=== PATIENT | male | born 1965 | race Caucasian/White ===

== ENCOUNTER 2017-01-10 17:56 | Inpatient (IN) | payer BC ==
[~2017-01-10] VITALS: Ht 167.6 cm; Wt 78.5 kg
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
--- NOTE | 2017-01-10 20:10 | RADRPT ---
PROCEDURE: XR Hip. CLINICAL INDICATION: Right hip pain TECHNIQUE: AP and frog lateral views of the right hip and AP pelvis were performed. COMPARISON: 10/22/2012 FINDINGS: There is no definite acute fracture or dislocation. There is a hazy radiopaque opacity measuring ab out 2.0 cm inferior to the femoral neck on the AP view but not visualized on the frog-leg lateral vi ew. There is mild osseous spurring of the right hip. The joint space is intact. There is also mil d osseous spurring of the greater trochanter with a 5 mm opacity adjacent to the greater trochanter. RPTAT: ZZ IMPRESSION: 1. No definite acute fracture. 2. Hazy radiopaque opacity measuring about 2.0 cm inferior to the femoral neck which may be calcifi cation within the soft tissues or artifact overlying the patient as this is not seen on the frog-leg lateral views. Follow-up pelvis radiographs may be helpful for additional evaluation. If this is p ersistent on follow-up radiographs, a follow-up CT may be helpful. 3. Mild degenerative changes of the right hip. 4. Small 5 mm radiopaque opacity adjacent to the greater trochanter which may correspond with a sma ll focus of calcification or hydroxyapatite deposition. .Siria Turcios MD, MD Date Time Electronically viewed and signed by .Siria Turcios MD, on 01/10/2017 20:09 .T/
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
--- NOTE | 2017-01-10 21:27 | RADRPT ---
PROCEDURE: XR Chest. CLINICAL INDICATION: chest pain TECHNIQUE: Single frontal view of the chest was obtained COMPARISON: None FINDINGS: The heart and mediastinum are within normal limits. The lungs are clear. There is no pleural effusion or pneumothorax. RPTAT: AA IMPRESSION: No acute disease. .Arnav Ramirez MD, Date Time Electronically viewed and signed by .Arnav Ramirez MD, on 01/10/2017 21:26 .S/
[2017-01-10 21:28] LABS: ADD SCAN DIFF NO
[2017-01-10 21:31] LABS: BASOPHILS % 0.2 % (0.0-2.0); EOSINOPHILS # 0.1 10^3/ul (0.0-0.5); EOSINOPHILS % 1.3 % (0.0-7.0); HEMATOCRIT 38.3 % (42.0-52.0); HEMOGLOBIN 13.4 g/dl (14.0-18.0); LYMPHOCYTES # 1.7 10^3/ul (0.8-2.9); LYMPHOCYTES % 19.4 % (15.0-51.0); MEAN CORPUSCULAR VOLUME 94.3 fl (82.0-101.0); MEAN PLATELET VOLUME 9.3 fl (7.4-10.4); MONOCYTE # 0.5 10^3/ul (0.3-0.9); MONOCYTES % 5.5 % (0.0-11.0); NEUTROPHIL # 6.3 10^3/ul (1.6-7.5); NEUTROPHILS % 73.4 % (39.0-77.0); PLATELET COUNT 221 10^3/UL (140-415); RED BLOOD COUNT 4.06 10^6/ul (4.70-6.10); WHITE BLOOD COUNT 8.5 10^3/ul (4.8-10.8)
[2017-01-10 21:45] LABS: INR 0.91; PROTIME 12.3 Sec (12.2-14.2)
[2017-01-10 21:46] LABS: PARTIAL THROMBOPLASTIN TIME 30.9 Sec (25.0-35.0)
[2017-01-10] MEDS ORDERED: morphine 4 MG/ML VIAL IV STA (21:48)
[2017-01-10] MEDS ORDERED: ONDANSETRON 4 MG INJ IV STA (21:48)
[2017-01-10 21:49] LABS: ANION GAP 14 (8-16); BLOOD UREA NITROGEN 12 mg/dl (7-20); CALCIUM 9.7 mg/dl (8.4-10.2); CARBON DIOXIDE 26 mmol/L (21-31); CHLORIDE 104 mmol/L (97-110); CREATININE 0.79 mg/dl (0.61-1.24); GLUCOSE 106 mg/dl (70-220); POTASSIUM 4.3 mmol/L (3.5-5.1); SODIUM 140 mmol/L (135-144)
[2017-01-10] MEDS ORDERED: ONDANSETRON 4 MG INJ IV PRN ×2 (22:00→23:30)
[2017-01-10] MEDS ORDERED: ACETAMINOPHEN 325 MG TAB PO PRN (22:00)
[2017-01-10 22:05] LABS: TROPONIN-I < 0.012 ng/ml (0.00-0.12)
[2017-01-10 22:49] VITALS: PULSE 69
[2017-01-10] MEDS ORDERED: GLUC100015 PO (22:57)
[2017-01-10] MEDS ORDERED: DIAZ5TAB4 PO (22:59)
[2017-01-10] MEDS ORDERED: KETOROLAC 30 MG INJ IV ONE (23:24)
[2017-01-10] MEDS ORDERED: HYDROCODONE/APAP (5/325) TAB PO PRN (23:30)
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
[2017-01-10 23:47] VITALS: BP 142/90; RESP 18
[2017-01-10 23:58] VITALS: Ht 167.6 cm; Wt 78.5 kg
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
[2017-01-11] MEDS: morphine 2 MG INJ IV PRN ×3 (07:08→15:02)
[2017-01-11 07:44] LABS: ADD SCAN DIFF NO
[2017-01-11 07:50] LABS: BASOPHILS % 0.5 % (0.0-2.0); EOSINOPHILS # 0.2 10^3/ul (0.0-0.5); EOSINOPHILS % 2.7 % (0.0-7.0); HEMATOCRIT 36.7 % (42.0-52.0); HEMOGLOBIN 12.8 g/dl (14.0-18.0); LYMPHOCYTES % 32.5 % (15.0-51.0); MEAN CORPUSCULAR HEMOGLOBIN 33.5 pg (29.0-33.0); MEAN CORPUSCULAR HGB CONC 34.9 g/dl (32.0-37.0); MEAN CORPUSCULAR VOLUME 96.1 fl (82.0-101.0); MEAN PLATELET VOLUME 9.4 fl (7.4-10.4); MONOCYTE # 0.6 10^3/ul (0.3-0.9); MONOCYTES % 10.2 % (0.0-11.0); NEUTROPHIL # 3.4 10^3/ul (1.6-7.5); NEUTROPHILS % 53.6 % (39.0-77.0); PLATELET COUNT 203 10^3/UL (140-415); RED BLOOD COUNT 3.82 10^6/ul (4.70-6.10); RED CELL DISTRIBUTION WIDTH 12.2 % (11.5-14.5); WHITE BLOOD COUNT 6.3 10^3/ul (4.8-10.8)
[2017-01-11 08:10] LABS: CALCIUM 9.3 mg/dl (8.4-10.2); CREATININE 0.81 mg/dl (0.61-1.24); MAGNESIUM 2.1 mg/dl (1.7-2.5); POTASSIUM 3.9 mmol/L (3.5-5.1)
[2017-01-11 08:16] VITALS: BP 123/82; RESP 18
[2017-01-11] MEDS: FAMOTIDINE 20 MG TAB PO SCH ×2 (09:38→20:30)
[2017-01-11] MEDS: DOCUSATE SODIUM 100 MG CAP PO SCH ×2 (09:39→20:29)
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
[2017-01-11 12:44] LABS: IRON 95 ug/dl (35-150)
[2017-01-11 12:55] LABS: TOTAL IRON BINDING CAPACITY 287 ug/dl (241-421)
[2017-01-11] MEDS ORDERED: BARIUM SULF 2% 450 ML BTL (BERRY SMOOTHIE) PO ONE (13:00)
[2017-01-11 13:17] LABS: THYROID STIMULATING HORMONE 1.39 MIU/L (0.465-4.680)
[2017-01-11 13:21] LABS: FERRITIN 78.9 ng/ml (11.1-264.0)
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
[2017-01-11 19:00] VITALS: BP 136/89; RESP 18
[2017-01-11 19:05] VITALS: BP 135/69; RESP 18
[2017-01-11] MEDS ORDERED: traZODone 50 MG TAB PO ONE (21:00)
[2017-01-12 05:45] LABS: ADD SCAN DIFF NO
[2017-01-12 05:48] LABS: BASOPHILS % 0.4 % (0.0-2.0); EOSINOPHILS # 0.2 10^3/ul (0.0-0.5); EOSINOPHILS % 3.5 % (0.0-7.0); HEMATOCRIT 36.5 % (42.0-52.0); HEMOGLOBIN 12.9 g/dl (14.0-18.0); LYMPHOCYTES # 1.8 10^3/ul (0.8-2.9); LYMPHOCYTES % 38.1 % (15.0-51.0); MEAN CORPUSCULAR HEMOGLOBIN 34.2 pg (29.0-33.0); MEAN CORPUSCULAR HGB CONC 35.3 g/dl (32.0-37.0); MEAN CORPUSCULAR VOLUME 96.8 fl (82.0-101.0); MEAN PLATELET VOLUME 9.7 fl (7.4-10.4); MONOCYTE # 0.5 10^3/ul (0.3-0.9); MONOCYTES % 10.8 % (0.0-11.0); NEUTROPHIL # 2.3 10^3/ul (1.6-7.5); NEUTROPHILS % 47.2 % (39.0-77.0); PLATELET COUNT 203 10^3/UL (140-415); RED BLOOD COUNT 3.77 10^6/ul (4.70-6.10); RED CELL DISTRIBUTION WIDTH 12.3 % (11.5-14.5); WHITE BLOOD COUNT 4.8 10^3/ul (4.8-10.8)
[2017-01-12 06:08] LABS: MAGNESIUM 2.1 mg/dl (1.7-2.5)
[2017-01-12 06:48] LABS: CALCIUM 8.9 mg/dl (8.4-10.2); CREATININE 0.79 mg/dl (0.61-1.24)
[2017-01-12] MEDS: morphine 2 MG INJ IV PRN ×3 (07:53→20:52)
[2017-01-12] MEDS: FAMOTIDINE 20 MG TAB PO SCH ×2 (09:06→20:51)
[2017-01-12] MEDS: DOCUSATE SODIUM 100 MG CAP PO SCH ×2 (09:06→20:51)
--- NOTE | 2017-01-12 11:03 | PN ---
Date/Time of Note Date/Time of Note DATE: 01/12/17 TIME: 11:00 Assessment/Plan VTE Prophylaxis VTE Prophylaxis Intervention: ambulation, SCD's Lines/Catheters IV Catheter Type (from Nrsg): Peripheral IV Assessment/Plan Chief Complaint/Hosp Course 1. C5 vertebral fracture -> Status post neurosurgery evaluation and according to NS, this is a stable fracture and there is no indication for surgery. Needs order clarification for cancelled CT of thoracic and lumbar spine to rule out other possible fracture with neurosurgery. -> Recommended cervical collar 6 weeks -> Pain control as needed. DVT prophylaxis. Bilateral sequential compression devices. Gastrointestinal prophylaxis. Histamine 2 receptor blockers. Plan: Follow-up with neurosurgery regarding neurosurgery plan for CT of thoracic and lumbar spine to rule out other possible fracture. Discharge planning once workup is completed and cleared from neurosurgery standpoint. Case discussed with Dr. Huizar. Problems: Subjective 24 Hr Interval Summary Free Text/Dictation Patient lying in bed. With cervical collar. Denies numbness, tingling, headache or other neurological symptoms. Has been ambulating in the room without any difficulties. Exam/Review of Systems Vital Signs Vitals Vital Signs Date Time Temp Pulse Resp B/P Pulse Ox O2 Delivery O2 Flow Rate FiO2 01/11/17 19:00 98.4 73 18 136/89 95 01/10/17 22:49 Room Air Intake and Output 01/11/17 01/11/17 01/12/17 15:00 23:00 07:00 Intake Total 900 ml Output Total 900 ml Balance 0 ml Exam General: Well developed,adequately built, not in any acute distress . HEENT: With cervical collar. Normocephalic, Atraumatic, No laceration or hematoma; Eyes: PEERL, Conjunctiva clear, Anicteric sclera. Cardiac: S1, S2 auscultated, regular rhythm and rate, no mumurs or gallop Pulmonary: Normal respiratory effort. Chest clear to auscultation bilaterally, no adventitious breath sounds GI: Abdomen normal to inspection. Soft, non tender, non- distended, no masses, no rebound tenderness or guarding. Bowel sounds active on all four quadrants Genitourinary: Deferred Extremities: No cyanosis, clubbing, or edema. Pulses [2+] bilaterally. Full ROM on all four extremities. No focal weakness appreciated. Neurologic: Alert to person, place, time, and situation. Affect appropriate, intact sensation. Skin: Clean,dry, and intact. No ecchymosis, no rashes, or lesions Results Result Diagram: 01/12/17 0435 01/12/17 0435 Results 24 hrs Laboratory Tests Test 01/12/17 04:35 White Blood Count 4.8 # Red Blood Count 3.77 L Hemoglobin 12.9 L Hematocrit 36.5 L Mean Corpuscular Volume 96.8 Mean Corpuscular Hemoglobin 34.2 H Mean Corpuscular Hemoglobin Concent 35.3 Red Cell Distribution Width 12.3 Platelet Count 203 Mean Platelet Volume 9.7 Neutrophils % 47.2 Lymphocytes % 38.1 Monocytes % 10.8 Eosinophils % 3.5 Basophils % 0.4 Nucleated Red Blood Cells % 0.0 Neutrophils # 2.3 Lymphocytes # 1.8 Monocytes # 0.5 Eosinophils # 0.2 Basophils # 0.0 Nucleated Red Blood Cells # 0.0 Sodium Level 140 Potassium Level 4.0 Chloride Level 107 Carbon Dioxide Level 24 Anion Gap 13 Blood Urea Nitrogen 14 Creatinine 0.79 Glucose Level 86 Calcium Level 8.9 Phosphorus Level 4.0 Magnesium Level 2.1 Medications Medications Current Medications Morphine Sulfate (morphine) 2 mg Q4H PRN IV pain Last administered on 01/12/17 07:53; Admin Dose 2 MG; Start 01/10/17 at 23:30 Acetaminophen/ Hydrocodone Bitart (Kittery (5/325)) 1 tab Q6H PRN PO breakthrough pain; Start 01/10/17 at 23:30 Docusate Sodium (Colace) 100 mg BID PO Last administered on 01/12/17 09:06; Admin Dose 100 MG; Start 01/11/17 at 09:00 Ondansetron HCl (Zofran Inj) 4 mg Q6H PRN IV NAUSEA AND/OR VOMITING; Start 01/10 at 23:30 Famotidine (Pepcid) 20 mg BID PO Last administered on 01/12/17 09:06; Admin Dose 20 MG; Start 01/11/17 at 09:00 ABRAHAM VALLE NP Jan 12, 2017 11:03
[2017-01-12 12:37] VITALS: BP 136/88; RESP 18
--- NOTE | 2017-01-12 13:20 | RADRPT ---
PROCEDURE: CT thoracic spine without contrast CLINICAL INDICATION: Back pain. , trauma TECHNIQUE: CT scan of the thoracic spine was performed on a multidetector high-resolution CT scann . No IV contrast was administered. DOSE: CTDI = 20mGy and the DLP = 820mGy-cm. COMPARISON: None available FINDINGS: No acute thoracic vertebral compression fracture or subluxation. Mild multilevel thoracic discogenic degenerative endplate changes and anterior osteophytes are seen. No significant bony spinal canal or bony foraminal narrowing. Paraspinous soft tissues are grossly unremarkable. IMPRESSION: No acute thoracic vertebral compression fracture or subluxation. RPTAT: AA .Siva Macias MD, Date Time Electronically viewed and signed by .Siva Macias MD, on 01/12/2017 13:20 .T/
--- NOTE | 2017-01-12 13:25 | RADRPT ---
PROCEDURE: CT L-Spine. CLINICAL INDICATION: Back pain , trauma TECHNIQUE: A CT of the lumbar spine was performed on a multidetector CT scanner utilizing axial im ages from the thoracic lumbar junction through the lumbar sacral junction. Sagittal and coronal ref ormatted images were made. The CTDIvol is 15mGy and the DLP is 458mGycm. One or more of the followin g dose reduction techniques were used: Automated exposure control, Adjustment of the mA and/or kV ac cording to patient size, and/or use of iterative reconstruction technique. COMPARISON: Correlation abdominal CT 01/11/2017 FINDINGS: No evidence of an acute lumbar vertebral compression fracture. Multilevel degenerative changes L1-2: The disk space height is maintained. No significant disk protrusion, spinal canal stenosis or neural foraminal narrowing. L2-3: Grade 1 retrolisthesis with mild to moderate disk height loss. Circumferential disk bulge wit h mild bilateral foraminal narrowing. L3-4: Moderate disk bulge and facet arthropathy. Borderline, mild spinal canal narrowing and mild b ilateral foraminal narrowing. L4-5: Moderate disk bulge and facet arthropathy with moderate left and mild right foraminal narrowin g. Mild spinal canal narrowing. L5-1: Grade 1 retrolisthesis and moderate to severe disk height loss. Bulging of the posterior disk annulus with foraminal disk osteophytes causing severe bilateral foraminal stenosis. Aortic atherosclerosis. IMPRESSION: No acute lumbar compression fracture. Grade 1 retrolisthesis and moderate to severe discogenic disease L5-S1 resulting in severe bilateral foraminal stenosis. See details in the findings. RPTAT: AA .Siva Macias MD, MD Date Time Electronically viewed and signed by .Siva Macias MD, MD on 01/12/2017 13:25 .T/
[2017-01-12] MEDS ORDERED: BISACODYL 10 MG SUPP PR PRN (16:30)
[2017-01-12 19:45] VITALS: BP 145/93; RESP 19
[2017-01-12] MEDS ORDERED: traZODone 50 MG TAB PO SCH (21:00)
[2017-01-13 08:22] LABS: ADD SCAN DIFF NO
[2017-01-13 08:39] LABS: BASOPHILS % 0.4 % (0.0-2.0); EOSINOPHILS # 0.1 10^3/ul (0.0-0.5); EOSINOPHILS % 2.7 % (0.0-7.0); HEMATOCRIT 38.7 % (42.0-52.0); HEMOGLOBIN 13.6 g/dl (14.0-18.0); LYMPHOCYTES # 1.7 10^3/ul (0.8-2.9); LYMPHOCYTES % 33.1 % (15.0-51.0); MEAN CORPUSCULAR HEMOGLOBIN 33.7 pg (29.0-33.0); MEAN CORPUSCULAR HGB CONC 35.1 g/dl (32.0-37.0); MEAN PLATELET VOLUME 9.4 fl (7.4-10.4); MONOCYTE # 0.6 10^3/ul (0.3-0.9); MONOCYTES % 11.2 % (0.0-11.0); NEUTROPHIL # 2.7 10^3/ul (1.6-7.5); NEUTROPHILS % 52.2 % (39.0-77.0); PLATELET COUNT 214 10^3/UL (140-415); RED BLOOD COUNT 4.03 10^6/ul (4.70-6.10); RED CELL DISTRIBUTION WIDTH 12.1 % (11.5-14.5); WHITE BLOOD COUNT 5.2 10^3/ul (4.8-10.8)
[2017-01-13] MEDS: DOCUSATE SODIUM 100 MG CAP PO SCH (08:51)
[2017-01-13] MEDS: FAMOTIDINE 20 MG TAB PO SCH (08:51)
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
[2017-01-13] MEDS ORDERED: HYDR-3498 PO (08:59)
[2017-01-13] MEDS ORDERED: DOCU-216 PO (08:59)
[2017-01-13 09:01] VITALS: BP 132/84; RESP 20
[2017-01-13 09:23] LABS: CALCIUM 9.4 mg/dl (8.4-10.2); CREATININE 0.75 mg/dl (0.61-1.24); POTASSIUM 4.4 mmol/L (3.5-5.1)
--- NOTE | 2017-01-13 10:23 | PDOCDIS ---
Discharge Instructions DIAGNOSIS Discharge Diagnosis C5 Fracture CONDITION Patient Condition: Stable HOME CARE INSTRUCTIONS: Diet Instructions: Regular ACTIVITY: Activity Restrictions: Slowly Increase Activity Rest between Activity Avoid heavy lifting Bathing Restrictions: ShowerActivity Restrictions Comment: Keep collar on at all times. Call Dr Westfall with questions FOLLOW UP/APPOINTMENTS Follow-up Plan f/u with Dr Westfall in 4 weeks Name, Degree : Eddie Westfall MD Specialty : Neurosurgery Other Office ([facility]) [phone] Jossie Ja Office Address : [address] [place] [address] Office Office [employer] PRETTY CAMEJO Jan 13, 2017 10:23
== END 2017-01-13 11:03 | disposition home or self-care (01) | DRG 552 ==
LOC: EDBD 17:56 → FTE 17:56 → MS1 21:49 → E/R 22:59
PROVIDERS: ADMIT Family Medicine; ATTEND Family Medicine
DX: S12.401A Unspecified nondisplaced fracture of fifth cervical vertebra, initial encounter for closed fracture (principal); S06.0X1A Concussion with loss of consciousness of 30 minutes or less, initial encounter; S70.02XA Contusion of left hip, initial encounter; D64.9 Anemia, unspecified; G89.29 Other chronic pain; M54.9 Dorsalgia, unspecified; M48.06 Spinal stenosis, lumbar region; Y93.9 Activity, unspecified; V43.52XA Car driver injured in collision with other type car in traffic accident, initial encounter
CPT/HCPCS: 36415; 70450; 71010; 71250; 72125; 72128; 72131; 72141; 73510; 74176; 80048; 80061; 82728; 83036; 83540; 83735; 84100; 84439; 84443; 84484; 85025; 85610; 85730; 93005; 96374; 96375; J1885; J2270; J2405; L0174